=== PATIENT | male | born 1945 | race Caucasian/White ===

== ENCOUNTER → 2017-05-20 | Outpatient (CLI) | payer OTHER ==
[~2017-05-20] MED LIST: ACETAMINOPHEN; AMIODARONE; CARDIZEM CD; COUMADIN; COUMADIN PO; LEVAQUIN; LORTAB 7.5-5001 TAB; MEVACOR PO; SPIRIVA18 MCG INH; SYMBICORT80 INH; TARKA PO
--- NOTE | ~2017-05-20 | CR63 ---
[facility] A Service of [facility] RADIOLOGY TEXT RESULTS PATIENT: FRANKY CARO RAY LOCATION: CRAD : 45 UNIT #: [id number] AGE: [address]: Hamzah Camara MD SEX: M ORDER DR: [id number] [facility] [address] [place], [place] [address] [id number] O MR#: [id number] Acc #: [id number] NAME: FRANKY CARO : 1945 SEX: M STUDY DATE/TIME: 05/20/2017 9:56 UNIT: [facility] ROOM: STUDY DESCRIPTION: CR Chest 2 View Attending Physician: Hamzah Camara M.D. Referring Physician: Hamzah Camara M.D. Ordering Physician: Hamzah Camara M.D. Primary Care Physician: Chi Verde M.D. MEDICAL IMAGING REPORT This report is preliminary unless electronic signature is present EXAM Chest x-ray 05/20 INDICATIONS Lung cancer. Shortness of air for 1 week. TECHNIQUE 2 views of the chest are compared with 02/06/2009. COMPARISON STUDIES Comparison also made with chest CT from 06/25/2016. FINDINGS The heart is enlarged. There is emphysema. Postoperative volume loss and scarring noted at the right lung base. IMPRESSION Emphysema with stable cardiomegaly. Chronic right side volume loss with scarring at the right base. No acute findings in the chest. Dictated by... Stanford Marc Jr., M.D. THIS IS AN ELECTRONICALLY VERIFIED REPORT Stanford Marc Jr., M.D. at 05/21/2017 8:49 AM JESUS/petey TD: 05/20/2017 22:22 JOB #: [id number] MEDICAL IMAGING REPORT [facility] A Service [facility] RADIOLOGY TEXT RESULTS PATIENT: FRANKY CARO RAY LOCATION: CRAD : 45 UNIT #: [id number] AGE: [address]: Hamzah Camara MD SEX: M ORDER DR: Page 1 of 1 COPY
== END | disposition home or self-care (01) ==
LOC: CRAD 09:21
DX: C34.90 Malignant neoplasm of unspecified part of unspecified bronchus or lung (principal); J43.9 Emphysema, unspecified; I51.7 Cardiomegaly
CPT/HCPCS: 71020

== ENCOUNTER 2017-06-04 06:56 | Emergency (ER) | payer OTHER ==
[~2017-06-04] VITALS: Ht 182.9 cm; Wt 113.4 kg
--- NOTE | ~2017-06-04 | CT71 ---
[facility] A Service of [facility] RADIOLOGY TEXT RESULTS PATIENT: FRANKY CARO LOCATION: [facility] : 45 UNIT #: [id number] AGE: [address]: Dhara Thompson APRN SEX: M ORDER DR: [id number] [facility] [address] [place], [place] [address] [id number] E MR#: [id number] Acc #: [id number] NAME: FRANKY CARO : 1945 SEX: M STUDY DATE/TIME: 06/04/2017 7:55 UNIT: NINO ROOM: STUDY DESCRIPTION: CT Head Wo Contrast Attending Physician: Dhara Thompson A.P.R.N. Ordering Physician: Ed Marty Tovar M.D. Primary Care Physician: Chi Verde M.D. MEDICAL IMAGING REPORT This report is preliminary unless electronic signature is present EXAM Head CT, 06/04 INDICATION Tripped and fell at home today at 5:30 this morning. Laceration above the left orbit with bruising. Hit left side of head on nightstand. TECHNIQUE Axial images were obtained from the base to the vertex without contrast. This CT exam was performed with one or more of the following radiation dose reduction techniques: automatic exposure control, adjustment of mA and/or kV according to patient size, and iterative reconstruction. COMPARISON No comparison. FINDINGS There is generalized atrophy. Ventricular size and configuration are normal. Chronic small vessel ischemic changes are present in the white matter. Atherosclerotic calcifications are present in the carotid siphons and vertebral arteries. No skull fracture. There are bilateral nasal fractures which are presumably old. IMPRESSION No acute findings in the brain. No skull fracture. There are bilateral nasal fractures that are presumably old. Dictated by... Stanford Marc Jr., M.D. [facility] A Service [facility] RADIOLOGY TEXT RESULTS PATIENT: FRANKY CARO LOCATION: [facility] : 45 UNIT #: [id number] AGE: [address]: Dhara Thompson APRN SEX: M ORDER DR: THIS IS AN ELECTRONICALLY VERIFIED REPORT Stanford Marc Jr., M.D. at 06/04/2017 5:09 PM JESUS/hesham TD: 06/04/2017 11:52 JOB #: [id number] MEDICAL IMAGING REPORT Page 1 of 1 COPY
[2017-06-04 07:46] LABS: BASOPHIL% 0.4 % (0-2.5); EOSINOPHIL# 0.1 X10e3 (0-0.7); EOSINOPHIL% 0.9 % (0.0-7.0); HEMATOCRIT 45.8 % (38.0-50.0); HEMOGLOBIN 15.5 gm/dL (13.0-16.0); LYMPHOCYTE# 1.8 X10e3 (1.0-3.5); LYMPHOCYTE% 27.3 % (17.0-45.0); MEAN CELL VOLUME 95.7 FL (83-96); MEAN CORPUSCULAR HEMOGLOBIN 32.5 PG (28-34); MEAN CORPUSCULAR HGB CONC 33.9 g/dL (30-36); MEAN PLATELET VOLUME 9.7 FL (6.5-11.5); MONOCYTE# 0.6 X10e3 (0-1.0); MONOCYTE% 8.3 % (3.0-12.0); NEUTROPHIL# 4.3 X10e3 (1.5-7.1); NEUTROPHIL% 63.1 % (40-75); PLATELET COUNT 137 X10e3 (140-420); RED BLOOD COUNT 4.79 X10e (3.90-5.60); RED CELL DISTRIBUTION WIDTH 13.8 % (11.0-15.5); WHITE BLOOD COUNT 6.8 X10e3 (4.0-10.5)
[2017-06-04 07:47] LABS: DIFF IND NO
[2017-06-04 07:59] LABS: INR 1.8; PROTHROMBIN TIME (PATIENT) 20.1 SECONDS (10.0-11.7)
[2017-06-04 08:10] LABS: BUN/CREATININE RATIO 27.5; CALCIUM SERUM 8.7 mg/dL (8.4-10.2); CREATININE SERUM 0.8 mg/dL (0.6-1.4); GLOM FILT RATE Estimated 89.9 mL/min (>60); POTASSIUM 4.1 mmol/L (3.5-5.1)
== END 2017-06-04 09:38 | disposition home or self-care (01) ==
LOC: CED 06:56
PROVIDERS: Nurse Practitioner
DX: S01.21XA Laceration without foreign body of nose, initial encounter (principal); S01.81XA Laceration without foreign body of other part of head, initial encounter; R79.1 Abnormal coagulation profile; I10 Essential (primary) hypertension; I48.91 Unspecified atrial fibrillation; Z23 Encounter for immunization; Z85.118 Personal history of other malignant neoplasm of bronchus and lung; Z87.891 Personal history of nicotine dependence; Z79.01 Long term (current) use of anticoagulants; W01.198A Fall on same level from slipping, tripping and stumbling with subsequent striking against other object, initial encounter; Y92.009 Unspecified place in unspecified non-institutional (private) residence as the place of occurrence of the external cause
CPT/HCPCS: 12013; 36415; 70450; 80048; 85025; 85610; 90471; 90715; 99284